=== PATIENT | male | born 1995 | race Caucasian/White ===

== ENCOUNTER 2017-06-01 09:38 | Day surgery (SDC) | payer OTHER ==
[2017-06-01] MEDS ORDERED: Lactated Ringer's 500 ML IV SCH (12:00)
[2017-06-01 12:22] VITALS: TEMP 97.6
[2017-06-01] MEDS ORDERED: Propofol 10 mg/ml Inj (20 ML) ONE (12:43)
[2017-06-01 12:54] VITALS: RESP 12
[2017-06-01 12:59] VITALS: BP 125/47; PULSE 82; O2SAT 100
== END 2017-06-01 12:57 | disposition home or self-care (01) ==
LOC: C.ENDO 09:38
PROVIDERS: ATTEND Internal Medicine
DX: K20.8 Other esophagitis (principal); K29.60 Other gastritis without bleeding; K31.9 Disease of stomach and duodenum, unspecified
CPT/HCPCS: 43239; 88305; 88312; 88342; J2001; J2704; J7120